=== PATIENT | female | born 1955 | race Caucasian/White ===

== ENCOUNTER 2016-09-13 14:16 | Outpatient (RCR) | payer OTHER ==
[~2016-09-13 14:16] MED LIST: COMBVENT INH; NYSTATIN ORAL PO; PAIN325T; PERC5TAB8 OR; VARE1TA OR; ZOLO50TA OR
--- NOTE | 2016-10-12 11:49 | RADONC ---
RADIATION ONCOLOGY TREATMENT SUMMARY DATE: 10/12/2016 RADIATION ONCOLOGY CHART NUMBER: [id number]. DIAGNOSIS: Left breast cancer. STAGE: 0, [id number]. ECOG PERFORMANCE STATUS: 0 TREATMENT SUMMARY: Ms. Gray is a very pleasant 61-year-old white female with the diagnosis of a stage 0, [id number] ductal carcinoma in situ who presented to us status post lumpectomy for consideration of postoperative radiation therapy for conservative breast management, local control and cure. We treated the patient to the left breast for a total dose of 4005 cGy delivered in 15 fractions of 266.7 cGy each over 20 elapsed days from 09/21/2016 through 10/11/2016. The patient's left breast was treated on the linear accelerator utilizing a combination of 6X and 18X photon beams via 3D conformal therapy with medial and lateral tangents. Ms. Gray tolerated her treatments quite well with no difficulties related to her radiation therapy. She was able to complete therapy as prescribed without interruption. I have scheduled the patient to see me again in 1 month for further followup. She will also continue to be followed by her other physicians as well. cc: Bernie Hammond MD *Bibi Hill MD
--- NOTE | 2016-10-13 09:04 | RADONC ---
RADIATION ONCOLOGY PROGRESS NOTE: DATE: 10/10/2016 Ms. Gray is presently at a dose of 3738 cGy to her left breast and is tolerating treatments quite well at this point with no complaints related to her radiation therapy other than some tenderness of the left breast. REVIEW OF SYSTEMS: The patient's review of systems is positive for some breast tenderness but is otherwise noncontributory. She denies nausea, vomiting, fevers, chills, night sweats, diplopia, headaches, anxiety or depression, anorexia, weight loss, visual disturbances, chest pain, urinary or bowel difficulties, bone pain, or neurological problems. PHYSICAL EXAMINATION: The patient's skin is in good condition with no evidence of moist or dry desquamation. There is some erythema present. The remainder of her physical exam remains unchanged. Ms. Gray is tolerating treatments quite well and radiation will continue as scheduled.
== END 2016-10-11 ==
LOC: M ONCR 14:16
PROVIDERS: ATTEND Radiology Radiation Oncology
DX: D05.12 Intraductal carcinoma in situ of left breast (principal)

== ENCOUNTER → 2016-09-14 | Outpatient (CLI) | payer OTHER | END | disposition home or self-care (01) | LOC: M RAD 08:12 | PROVIDERS: ATTEND Radiology Radiation Oncology | DX: C50.919 Malignant neoplasm of unspecified site of unspecified female breast (principal) ==

== ENCOUNTER → 2016-11-09 | Outpatient (CLI) | payer OTHER ==
--- NOTE | 2016-11-11 13:24 | RADONC ---
RADIATION ONCOLOGY FOLLOWUP NOTE DATE: 11/09/2016 CHART NUMBER: [id number] DIAGNOSIS: Left breast cancer. STAGE: Stage is 0, [id number]. ECOG PERFORMANCE STATUS: 0 FOLLOWUP NOTE: Ms. Gray is a very pleasant, 61-year-old white female with the diagnosis of a stage 0, [id number] ductal carcinoma in situ of the left breast who is presenting to us today for routine followup visit 1 month post completion of external beam radiation therapy. The patient presents today reporting that she is doing quite well with no complaints at this time related to her radiation therapy or disease. She is having no breast or bone pain. REVIEW OF SYSTEMS: The patient's review of systems is noncontributory. Denies nausea, vomiting, fevers, chills, night sweats, diplopia, headaches, anxiety or depression, anorexia, weight loss, visual disturbances, chest pain, urinary or bowel difficulties, bone pain, or neurological problems. PHYSICAL EXAMINATION: The patient is a well-developed, well-nourished, 61-year-old female, in no acute distress. HEENT exam is normocephalic, atraumatic. Extraocular movements are intact. There is no palpable cervical, supraclavicular, infraclavicular, axillary, or inguinal lymphadenopathy present. Lungs are clear to auscultation and percussion. Heart has a regular rate and rhythm. Abdomen is benign with no hepatosplenomegaly, masses, or tenderness. Breast examination reveals no masses or discharge bilaterally. Skeletal examination reveals no tenderness to pressure or percussion of the bony skeleton. Extremities reveal no clubbing, cyanosis, or edema. Neurologic exam is grossly intact, as is the remainder of the physical examination. ASSESSMENT: The patient is clinically BENITEZ at this time and will be seen by us again in 6 months for further followup. She will also continue to be followed by her other physicians as well. cc: Bernie Hammond MD *Bibi Hill MD
== END ==
LOC: M ONCR 14:18
PROVIDERS: ATTEND Radiology Radiation Oncology
DX: D05.12 Intraductal carcinoma in situ of left breast (principal)

== ENCOUNTER → 2017-05-24 | Outpatient (CLI) | payer OTHER ==
--- NOTE | 2017-05-25 07:45 | RADONC ---
RADIATION ONCOLOGY FOLLOWUP NOTE DATE: 05/24/2017 CHART NUMBER: [id number]. DIAGNOSIS: Left breast cancer. STAGE: 0, [id number] ECOG PERFORMANCE STATUS: Zero. FOLLOWUP NOTE: Ms. Kadi Gray is a very pleasant, 62-year-old white female with the diagnosis of a stage 0, [id number] ductal carcinoma in situ of the left breast who is presenting to us today for routine followup visit 7 months post completion of external beam radiation therapy. The patient presents today reporting that she is doing quite well with no complaints at this time related to her radiation therapy or disease. She has no breast or bone pain. REVIEW OF SYSTEMS: The patient's review of systems is noncontributory. Denies nausea, vomiting, fevers, chills, night sweats, diplopia, headaches, anxiety or depression, anorexia, weight loss, visual disturbances, chest pain, urinary or bowel difficulties, bone pain, or neurological problems. PHYSICAL EXAMINATION: The patient is a well-developed, well-nourished, 62-year-old white female, in no acute distress. HEENT exam is normocephalic, atraumatic. Extraocular movements are intact. There is no palpable cervical, supraclavicular, infraclavicular, axillary, or inguinal lymphadenopathy present. Lungs are clear to auscultation and percussion. Heart has a regular rate and rhythm. Abdomen is benign with no hepatosplenomegaly, masses, or tenderness. Breast examination reveals no masses or discharge bilaterally. Skeletal examination reveals no tenderness to pressure or percussion of the bony skeleton. Extremities reveal no clubbing, cyanosis, or edema. Neurologic exam is grossly intact, as is the remainder of the physical examination. ASSESSMENT: The patient is clinically BENITEZ at this time and will be seen by us again in 6 months for further followup. She will also continue to be followed by her other physicians as well. cc: MD Bibi Rodrigez MD
== END ==
LOC: M ONCR 14:05
PROVIDERS: ATTEND Radiology Radiation Oncology
DX: C50.912 Malignant neoplasm of unspecified site of left female breast (principal)

== ENCOUNTER → 2017-07-03 | Outpatient (CLI) | payer OTHER ==
[2017-07-03 20:04] LABS: CALCIUM LEVEL 9.2 MG/DL (8.8-10.2); CREATININE FOR GFR 1.04 MG/DL (0.55-1.02); GLOMERULAR FILTRATION RATE 56.8 (>45); POTASSIUM SERUM 4.4 MEQ/L (3.5-5.1)
== END ==
LOC: M WUC 11:55
PROVIDERS: ATTEND Physician Assistant Medical
DX: E78.5 Hyperlipidemia, unspecified (principal)

== ENCOUNTER → 2017-11-29 | Outpatient (CLI) | payer OTHER | LOC: M ONCR 14:03 | DX: D05.12 Intraductal carcinoma in situ of left breast (principal) ==

== ENCOUNTER → 2018-05-23 | Outpatient (CLI) | payer MEDICARE | LOC: M ONCR 14:05 | DX: D05.12 Intraductal carcinoma in situ of left breast (principal) | CPT/HCPCS: G0463 ==

== ENCOUNTER → 2018-07-20 | Outpatient (REF) | payer MEDICARE ==
[2018-07-20 17:04] LABS: ANION GAP 7 MEQ/L (8-16); BLOOD UREA NITROGEN 10 MG/DL (7-18); CALCIUM LEVEL 8.9 MG/DL (8.8-10.2); CARBON DIOXIDE LEVEL 30 MEQ/L (21-32); CHLORIDE LEVEL 105 MEQ/L (98-107); CHOLESTEROL LEVEL 263 MG/DL (<200); CHOLESTEROL RISK RATIO 4.534 (<5); CREATININE FOR GFR 1.22 MG/DL (0.55-1.30); GLOMERULAR FILTRATION RATE 47.1 (>45); GLUCOSE, FASTING 77 MG/DL (70-100); HDL CHOLESTEROL 58 MG/DL (>40); LDL CHOLESTEROL 188 MG/DL (<100); NON-HDL-C 205 MG/DL; POTASSIUM SERUM 4.1 MEQ/L (3.5-5.1); SODIUM LEVEL 142 MEQ/L (136-145); TRIGLYCERIDES LEVEL 83 MG/DL (<150)
[2018-07-20 17:13] LABS: TOTAL 25(OH) VITAMIN D 77.4 NG/ML (30.0-100.0)
[2018-07-20 17:14] LABS: ESTIMATED AVERAGE GLUCOSE 117 MG/DL (60-110); HEMOGLOBIN A1c 5.7 %
== END ==
LOC: M LABDRAW1 16:09
DX: E78.5 Hyperlipidemia, unspecified (principal); R73.01 Impaired fasting glucose; E55.9 Vitamin D deficiency, unspecified
CPT/HCPCS: 83036

== ENCOUNTER 2018-10-17 13:11 | Emergency (ER) | payer MEDICARE ==
[~2018-10-17] VITALS: Ht 167.6 cm; Wt 79.1 kg
[2018-10-17] MEDS ORDERED: NS 1,000 ML IV SCH (13:20)
[2018-10-17] MEDS ORDERED: ESOM40CA35 (13:23)
[2018-10-17] MEDS ORDERED: BREO1INH3 (13:23)
[2018-10-17] MEDS ORDERED: SPIR1CAP (13:23)
[2018-10-17] MEDS ORDERED: VALA-3 (13:23)
[2018-10-17] MEDS ORDERED: VITA50005 (13:23)
[2018-10-17] MEDS ORDERED: MORPHINE 4 MG/ML 1ML VIAL/SYRINGE (J2270) IV PRN (13:30)
[2018-10-17] MEDS ORDERED: PROPOFOL 200 MG/20 ML VIAL IV ONE ×2 (13:45→14:00)
[2018-10-17] MEDS ORDERED: KETOROLAC 30 MG/ML VIAL (J1885) As Ordered ONE (13:49)
[2018-10-17] MEDS ORDERED: fentaNYL 100 MCG/2 ML INJECTION (J3010) As Ordered ONE (13:50)
[2018-10-17] MEDS ORDERED: KETOROLAC 30 MG/ML VIAL (J1885) IV ONE (14:00)
[2018-10-17] MEDS ORDERED: fentaNYL 100 MCG/2 ML INJECTION (J3010) IV ONE (14:15)
[2018-10-17] MEDS ORDERED: NALOXONE INJ 2 MG/2 ML SYRINGE (J2310) As Ordered ONE (14:22)
[2018-10-17] MEDS ORDERED: NORCOTAB PO (14:38)
--- NOTE | 2018-10-17 14:53 | REP ---
Right shoulder: Single view. History: Post reduction. Comparison study is from earlier today. Findings: The right glenohumeral articulation is normally aligned. The comminuted fracture of the greater tuberosity shows improved alignment as well on this single AP view. There is diffuse osteopenia. There are surgical clips in the right axillary soft tissues. Impression: Glenohumeral joint is reduced. The greater tuberosity fracture of the humeral head appears improved alignment on this AP view as well. Electronically Signed by Moises Malcolm MD 10/17/2018 02:45 P
--- NOTE | 2018-10-17 15:06 | REP ---
RIGHT SHOULDER: Two views of the right shoulder are performed. There is anterior dislocation of the humeral head. There is a comminuted fracture of the greater tuberosity of the proximal humerus with displacement of the fracture fragments laterally. There are moderate degenerative changes of the acromioclavicular joint. Metallic clips are seen in the right axillary region. Electronically Signed by Brice Back MD 10/17/2018 05:23 P
[2018-10-17 16:07] VITALS: BP 145/67
== END 2018-10-17 16:09 | disposition home or self-care (01) ==
LOC: M ED 13:11 → EDBD 13:11 → M ED 16:09
DX: S42.251A Displaced fracture of greater tuberosity of right humerus, initial encounter for closed fracture (principal); S43.011A Anterior subluxation of right humerus, initial encounter; W19.XXXA Unspecified fall, initial encounter; Y92.009 Unspecified place in unspecified non-institutional (private) residence as the place of occurrence of the external cause; Y93.89 Activity, other specified; Y99.8 Other external cause status
CPT/HCPCS: 23665; 73020; 73030; 93041; 94760; 96374; 96375; 99152; 99285; J1885; J2270

== ENCOUNTER → 2019-03-20 | Outpatient (CLI) | payer MEDICARE ==
[~2019-03-20] MED LIST changes: +BREO1INH3; +ESOM40CA35; +HYDR-3715 PO; +PHEN37.52 PO; +SERT-138 PO; +SPIR1CAP; +VALA-3; +VITA50005
--- NOTE | 2019-03-20 11:28 | REP ---
MRI RIGHT SHOULDER: TECHNIQUE: Axial T2 fat sat, gradient echo, sagittal oblique T2 fat sat, coronal oblique T1, T2 fat sat. There is a full thickness, incomplete tear of the supraspinatus tendon. There is mild subscapularis tendinopathy. There are moderate hypertrophic degenerative changes of the acromioclavicular joint with subchondral marrow edema in the acromion. Acromion is type 2. Biceps tendon is within the bicipital groove with small amount of surrounding fluid. Deltoid muscle demonstrates no abnormal signal. There is fraying of the biceps labral complex. There is diffuse fraying of the entire labrum. Marrow edema is seen of the proximal humerus, and there is fracture again noted of the greater tuberosity of the proximal humerus. This is incompletely healed with a persistent fracture line present with linear high signal on T2-weighted images. There is a small joint effusion. There is mild diffuse chondromalacia at the glenohumeral joint. IMPRESSION: Full thickness incomplete tear supraspinatus tendon. Mild subscapularis tendinopathy. Moderate hypertrophic degenerative change of acromioclavicular joint with type 2 acromion. Fraying of the biceps labral complex and, also, there is diffuse fraying of the entire labrum. There is incomplete healing of the greater tuberosity fracture of the proximal humerus. There is marrow edema in the humeral head and neck. Small joint effusion. Electronically Signed by Brice Back MD 03/22/2019 12:26 P
== END ==
LOC: M RAD 07:16
PROVIDERS: ATTEND Orthopaedic Surgery Sports Medicine
DX: S42.294 Other nondisplaced fracture of upper end of right humerus (principal); X58.XXXD Exposure to other specified factors, subsequent encounter; Y92.9 Unspecified place or not applicable; S46.911A Strain of unspecified muscle, fascia and tendon at shoulder and upper arm level, right arm, initial encounter

== ENCOUNTER → 2019-05-29 | Outpatient (CLI) | payer MEDICARE ==
--- NOTE | 2019-05-30 11:59 | RADONC ---
RADIATION ONCOLOGY FOLLOWUP NOTE: DATE: 05/29/2019 CHART NUMBER: [id number] DIAGNOSIS: Left breast cancer. STAGE: 0, Tis N0 M0 ECOG PERFORMANCE STATUS: 0 Ms. Piedra is a very pleasant 64-year-old white female with the diagnosis of a stage 0, Tis N0 M0 ductal carcinoma in situ of the left breast who is presenting to us today for routine followup visit 2 years and 7 months post completion of external beam radiation therapy. The patient presents today reporting that she is doing quite well with no complaints at this time related to her radiation therapy or disease. She has no breast bone pain. REVIEW OF SYSTEMS: The patient's review of systems is noncontributory. She denies nausea, vomiting, fevers, chills, night sweats, diplopia, headaches, anxiety or depression, anorexia, weight loss, visual disturbances, chest pain, urinary or bowel difficulties, bone pain, or neurological problems. PHYSICAL EXAMINATION: The patient is a well-developed, well-nourished female in no acute distress. HEENT exam is normocephalic, atraumatic. Extraocular movements are intact. There is no palpable cervical, supraclavicular, infraclavicular, axillary, or inguinal lymphadenopathy present. Lungs are clear to auscultation and percussion. Heart has a regular rate and rhythm. Abdomen is benign with no hepatosplenomegaly, masses, or tenderness. Breast examination reveals no masses or discharge bilaterally. Skeletal examination reveals no tenderness to pressure or percussion of the bony skeleton. Extremities reveal no clubbing, cyanosis, or edema. Neurologic exam is grossly intact, as is the remainder of the physical examination. ASSESSMENT: The patient is clinically BENITEZ at this time. She is being followed closely by her medical oncologist and other physicians. In light of that I have discharged her from our followup except on a p.r.n. basis. cc: MD Bibi Rodrigez MD
== END ==
LOC: M ONCR 13:47
PROVIDERS: ATTEND Radiology Radiation Oncology
DX: C50.911 Malignant neoplasm of unspecified site of right female breast (principal)

== ENCOUNTER → 2019-07-01 | Outpatient (CLI) | payer MEDICARE ==
[2019-07-01 16:09] LABS: BASO % 0.7 % (0.0-1.0); EOS # 0.3 10^3/uL (0.0-0.5); EOS % 5.2 % (0.0-3.0); HEMATOCRIT 41.9 % (36.0-47.0); HEMOGLOBIN 13.1 g/dl (12.0-15.5); LYMPH # 2.4 10^3/uL (1.5-5.0); LYMPH % 43.6 % (24.0-44.0); MEAN CORPUSCULAR HEMOGLOBIN 28.5 pg (27.0-33.0); MEAN CORPUSCULAR HGB CONC 31.3 g/dl (32.0-36.5); MEAN CORPUSCULAR VOLUME 91.1 fl (80.0-96.0); MONO # 0.5 10^3/uL (0.0-0.8); MONO % 8.3 % (0.0-5.0); NEUTROPHILS # 2.3 10^3/uL (1.5-8.5); NEUTROPHILS % 41.8 % (36.0-66.0); PLATELET COUNT, AUTOMATED 214 10^3/uL (150-450); WHITE BLOOD COUNT 5.4 10^3/uL (4.0-10.0)
[2019-07-01 16:33] LABS: HEMOGLOBIN A1c 5.5 %
[2019-07-01 16:39] LABS: ALBUMIN 3.5 GM/DL (3.2-5.2); ALT/SGPT 24 U/L (12-78); BILIRUBIN,TOTAL 0.3 MG/DL (0.2-1.0); BLOOD UREA NITROGEN 16 MG/DL (7-18); CALCIUM LEVEL 8.7 MG/DL (8.8-10.2); CARBON DIOXIDE LEVEL 30 MEQ/L (21-32); CHLORIDE LEVEL 108 MEQ/L (98-107); CHOLESTEROL LEVEL 256 MG/DL (<200); CHOLESTEROL RISK RATIO 4.338 (<5); GLOMERULAR FILTRATION RATE > 60.0 (>45); GLUCOSE, FASTING 89 MG/DL (70-100); HDL CHOLESTEROL 59 MG/DL (>40); LDL CHOLESTEROL 172 MG/DL (<100); MAGNESIUM LEVEL 2.1 MG/DL (1.8-2.4); NON-HDL-C 197 MG/DL; POTASSIUM SERUM 4.2 MEQ/L (3.5-5.1); SODIUM LEVEL 143 MEQ/L (136-145); TOTAL PROTEIN 6.4 GM/DL (6.4-8.2); TRIGLYCERIDES LEVEL 125 MG/DL (<150)
[2019-07-01 16:46] LABS: TOTAL 25(OH) VITAMIN D 55.4 NG/ML (30.0-100.0)
== END ==
LOC: M WUC 12:07
PROVIDERS: ATTEND Physician Assistant
DX: J44.9 Chronic obstructive pulmonary disease, unspecified (principal); E78.5 Hyperlipidemia, unspecified; E55.9 Vitamin D deficiency, unspecified; R73.01 Impaired fasting glucose

== ENCOUNTER 2019-10-01 10:19 | Day surgery (SDC) | payer MEDICARE ==
[~2019-10-01] VITALS: Ht 167.6 cm; Wt 81.6 kg
[~2019-10-01 10:19] MED LIST changes: +B-122500 PO; +BIOT10009 PO; -BREO1INH3; +BREO1INH3 INH; +COLLCAP PO; +EQL50TAB2 PO; +LIDOCAINE 2% INJ 100 MG/5 ML SDV (FOR ANES.) As Ordered ONE; +MAGN400C2 PO; +NIAC500C PO; +NS 1,000 ML IV ONE; +OMEG12003 PO; -SPIR1CAP; +SPIR1CAP INH; -VALA-3; +VALA-3 PO; +VIAC1CHW PO; +VITA200028 PO; +VITA500C24 PO; +propofoL 200 MG/20 ML VIAL As Ordered ONE
[2019-10-01] MEDS ORDERED: propofoL 200 MG/20 ML VIAL As Ordered ONE (12:01)
--- NOTE | 2019-10-01 12:38 | ROOR ---
Patient Name: Kadi Gray Procedure Date: 10/01/2019 11:36 AM Date of : 1955 Age: 64 Room: [facility] Gender: Female Note Status: Finalized Procedure: Total Colonoscopy to Cecum + Cold Snare Polypectomy + Hemoclips Indications: High risk colon cancer surveillance: Personal history of colonic polyps Providers: Parveen Gonsalves MD Referring MD: NILA Senior Requesting Provider: Medicines: Monitored Anesthesia Care Complications: No immediate complications. Procedure: Pre-Anesthesia Assessment: - The heart rate, respiratory rate, oxygen saturations, blood pressure, adequacy of pulmonary ventilation, and response to care were monitored throughout the procedure. The Colonoscope was introduced through the anus and advanced to the cecum, identified by appendiceal orifice and ileocecal valve. The Colonoscope was introduced through the and advanced to. The colonoscopy was performed without difficulty. The patient tolerated the procedure well. The quality of the bowel preparation was excellent. Findings: The perianal and digital rectal examinations were normal. Non-bleeding internal hemorrhoids were found during retroflexion. The hemorrhoids were small and Grade I (internal hemorrhoids that do not prolapse). A small polyp was found in the rectum. The polyp was sessile. The polyp was removed with a cold snare. Resection and retrieval were complete. To prevent bleeding after the polypectomy, one hemostatic clip was successfully placed (MR conditional). There was no bleeding at the end of the procedure. Two sessile polyps were found in the hepatic flexure. The polyps were medium in size. These polyps were removed with a cold snare. Resection and retrieval were complete. To prevent bleeding after the polypectomy, four hemostatic clips were successfully placed (MR conditional). There was no bleeding at the end of the procedure. The exam was otherwise without abnormality on direct and retroflexion views. Impression: - Non-bleeding internal hemorrhoids. - One small polyp in the rectum, removed with a cold snare. Resected and retrieved. Clip (MR conditional) was placed. - Two medium polyps at the hepatic flexure, removed with a cold snare. Resected and retrieved. Clips (MR conditional) were placed. - The examination was otherwise normal on direct and retroflexion views. - The exam was otherwise normal to the cecum. Recommendation: - Patient has a contact number available for emergencies. The signs and symptoms of potential delayed complications were discussed with the patient. Return to normal activities tomorrow. Written discharge instructions were provided to the patient. - Resume previous diet. - Discharge patient to home. - Continue present medications. - Await pathology results. - Telephone GI clinic for pathology results in 1 week. - Repeat colonoscopy for surveillance based on pathology results. - Return to referring physician. - The findings and recommendations were discussed with the patient's family. Parveen Gonsalves MD Parveen Gonsalves MD 10/01/2019 12:37:59 PM Electronically signed by Parveen Gonsalves MD Number of Addenda: 0 Note Initiated On: 10/01/2019 11:36 AM Estimated Blood Loss: Estimated blood loss: none.
[2019-10-01 13:00] VITALS: BP 148/75
== END 2019-10-01 13:15 | disposition home or self-care (01) ==
LOC: M OPP 10:19
PROVIDERS: ATTEND Internal Medicine Gastroenterology
DX: Z12.11 Encounter for screening for malignant neoplasm of colon (principal); Z86.010 Personal history of colon polyps; K64.0 First degree hemorrhoids; K62.1 Rectal polyp; D12.3 Benign neoplasm of transverse colon; Z79.899 Other long term (current) drug therapy; Z85.3 Personal history of malignant neoplasm of breast; Z87.891 Personal history of nicotine dependence

== ENCOUNTER → 2025-05-13 | Outpatient (CLI) | payer MEDICARE ==
[~2025-05-13] MED LIST changes: -EQL50TAB2 PO; -LIDOCAINE 2% INJ 100 MG/5 ML SDV (FOR ANES.) As Ordered ONE; -NIAC500C PO; +NIAC500C5 PO; -NS 1,000 ML IV ONE; -PHEN37.52 PO; +PHEN37.58 PO; +VITA1TAB82 PO; -propofoL 200 MG/20 ML VIAL As Ordered ONE
== END ==
LOC: M WUC 14:25
PROVIDERS: ATTEND Nurse Practitioner Family
DX: J44.9 Chronic obstructive pulmonary disease, unspecified (principal)